=== PATIENT | female | born 2005 | race Two or more races ===

== ENCOUNTER 2024-08-04 22:53 | Emergency (ER) | payer MEDICAID, SELFPAY ==
[2024-08-04 23:26] VITALS: BP 126/74; PULSE 119; RESP 18; TEMP 38.8; O2SAT 98
--- NOTE | 2024-08-04 23:28 | PD.EDRME ---
Rapid Medical Screening Exam RME Arrival date/time: 08/04/24 22:53 18 yo f present to ED for c/o of sore throat for 2 days I have greeted and performed a focused initial assessment of this patient. A comprehensive ED assessment and evaluation of the patient, analysis of all test results, and completion of the medical decision making process will be conducted by additional ED providers. Chief Complaint: Dental/Oral/Throat Time Seen by Provider: 08/04/24 22:57 Vital signs: Vital Signs Temperature 102 F H 08/04/24 23:26 Pulse Rate 119 H 08/04/24 23:26 Respiratory Rate 18 08/04/24 23:26 Blood Pressure 126/74 08/04/24 23:26 Pulse Oximetry (%) 98 08/04/24 23:26 Oxygen Delivery Method Room Air 08/04/24 23:26
[2024-08-04 23:33] VITALS: PULSE 101; RESP 98; TEMP 38.8; BMI 32.1
[2024-08-04] MEDS: ACETAMINOPHEN 500 MG TABLET 1000 MG PO (23:33)
--- NOTE | 2024-08-04 23:35 | EDNOTE_ITS ---
ED Dental RME/HPI General Chief complaint: Dental/Oral/Throat Stated complaint: RE CHECK FOR THROAT SWELLING Time Seen by Provider: 08/04/24 22:57 Arrival date/time: 08/04/24 22:53 Limitations: no limitations RME / HPI RME / HPI Narrative: 08/04/24 22:53 18 yo f present to ED for c/o of sore throat for 2 days I have greeted and performed a focused initial assessment of this patient. A comprehensive ED assessment and evaluation of the patient, analysis of all test results, and completion of the medical decision making process will be conducted by additional ED providers. ----- Dr. Wallis's Main ED Evaluation: 18yo female who was diagnosed with Strep today presents to the ED for a chief complaint of a sore throat x 2 days. Patient endorses associated fever and generalized body aches. Patient states she is able to swallow. She denies any shortness of breath, cough or any other associated symptoms. Related Data Home Medications ?Medication ?Instructions ?Recorded ?Confirmed norgestimate 0.18 mg/0.215 mg/0.25 1 tab PO DAILY 05/1412/09/23 mg-ethinyl estradiol 25 mcg tablet (Tri-Lo-Jess) Previous Rx's ?Medication ?Instructions ?Recorded amoxicillin 500 mg capsule 500 mg PO BID #20 caps 11/11 04/05 Allergies Allergy/AdvReac Type Severity Reaction Status Date / Time ibuprofen Allergy Abdominal Verified 12/09/23 13:53 Pain Review of Systems Review of Systems Systems Reviewed: All systems reviewed, normal except as documented Past Medical History Past Medical History NEUROLOGIC: Negative Neurological Disorders CARDIAC: Negative Cardiac Disorders or Congestive Heart Failure RESPIRATORY: Negative Chronic Obstructive Pulmonary Disease (COPD) or Asthma GASTROINTESTINAL: Positive Irritable Bowel ( A CHILD); Negative Gastrointestinal Disorders GENITOURINARY: Negative Renal Disease MUSCULOSKELETAL: Negative Musculoskeletal Disorders ENDOCRINE: Negative Diabetes Mellitus Type 1 or Diabetes Mellitus Type 2 HEMATOLOGIC: Negative Sickle Cell Disease PSYCHO/SOCIAL: Positive Depression and Anxiety Family History FAMILY HISTORY: Positive Family Cardiac Disorders and Family Cancer Social History SMOKING STATUS: Never smoker ED Exam General Limitations: Present no limitations General appearance: Present alert, in no apparent distress and other (no hot potato voice, appears mildly uncomfortable) Head Head exam: Present atraumatic Eye Eye exam: Present normal appearance, PERRL and EOMI ENT ENT exam: Present mucous membranes moist and other (minimal external swelling to the right jawline, no trismus, bilateral tonsillar swelling with exudate on the right, no pharyngeal wall swelling, not drooling) Neck Neck exam: Present normal inspection, full ROM and trachea midline Chest Chest inspection: Present normal inspection and symmetric chest wall rise Respiratory Respiratory exam: Present normal lung sounds bilaterally Cardiovascular Cardiovascular exam: Present normal rhythm, tachycardia and normal heart sounds Abdominal Exam Abdominal exam: Present soft and normal bowel sounds Extremities Exam Extremities exam: Present normal inspection and full ROM Back Exam Back exam: Present normal inspection and full ROM Neurological Exam Neurological exam: Present alert, oriented X3 and CN II-XII intact Psychiatric Psychiatric exam: Present normal affect and normal mood Skin Skin exam: Present warm, dry, intact and normal color Course Course Course Narrative: 2330: Sepsis alert initiated. Orders made at this time are congruent with ED Adult Sepsis Order List. Re-evaluation is to be completed. 2346: NS IVF started. 0118: Sepsis reassessment performed consisting of lab review, vitals, physical exam including auscultation of heart, lungs, and visual evaluation of capillary refills, mucosal membranes and extremities. Quality Measures Possible source: other Blood cultures ordered: completed in ED Antibiotic ordered: Yes Pertinent labs: 08/04/24 23:34 Lactic Acid 0.9 mMol/L (0.4-2.0) Procalcitonin 0.30 ng/ml (0.0-0.49) sepsis Orders Category Date Time Status Bedside Blood Glucose NOW Care 08/04/24 23:27 Completed Proof Carrier Q4H START 00 Care 08/04/24 23:27 Completed Insert IV NOW Care 08/04/24 23:27 Completed Strict Intake and Output Routine Care 08/04/24 23:27 Ordered Blood Culture (Lab) Stat Lab 08/04/24 23:41 Results CBC Stat Lab 08/04/24 23:34 Completed Comprehensive Metabolic Panel Stat Lab 08/04/24 23:34 Completed HCG,Qualitative Serum Stat Lab 08/04/24 23:34 Completed Lactate (Lactic Acid) Stat Lab 08/04/24 23:34 Completed Partial Thromboplastin Time Stat Lab 08/04/24 23:34 Completed Procalcitonin Stat Lab 08/04/24 23:34 Completed Prothrombin Time with INR Stat Lab 08/04/24 23:34 Completed Acetaminophen Tab [Tylenol ES Tab] Med 08/04/24 23:27 Discontinued 1,000 mg PO X1 ONE Benzonatate [Tessalon] Med 08/05/24 04:22 Discontinued 100 mg PO X1 ONE Clindamycin/Ns 600 mg Ivpb [Cleocin/Ns Ivpb] Med 08/04/24 23:28 Discontinued 600 mg in 50 ml IV X1 HYDROcodone*/APAP 5/325 [[place] 5/325] Med 08/05/24 04:22 Discontinued 1 tab PO X1 ONE Ketorolac Inj [Toradol Inj] Med 08/04/24 23:27 Discontinued 30 mg IVP X1 ONE MethylPREDNISolone.* [SoluMEDROL Inj] Med 08/04/24 23:27 Discontinued 125 mg IVP X1 ONE Sodium Chloride 0.9% 1000 ml [Ns] 1,000 ml Med 08/04/24 23:38 Discontinued IV 999 mls/hr Sodium Chloride 0.9% 1000 ml [Ns] 1,000 ml Med 08/04/24 23:38 Discontinued IV 999 mls/hr Oxygen Delivery NOW RT 08/04/24 23:27 Completed Vital Signs Vital signs: Vital Signs Temperature 102 F H 08/04/24 23:26 Pulse Rate 119 H 08/04/24 23:26 Respiratory Rate 18 08/04/24 23:26 Blood Pressure 126/74 08/04/24 23:26 Pulse Oximetry (%) 98 08/04/24 23:26 Oxygen Delivery Method Room Air 08/04/24 23:26 Pulse ox is 98% on room air, which is normal according to my interpretation. Dental / Oral MDM Narrative MDM Narrative:: Suspect that the patient is tachycardic due to her fever. IVF ordered. 0447: Patient continues to not have trismus or a hot potato voice on re-examination. Patient is tolerating PO fluids. Patient is stable to be discharged on outpatient antibiotics. 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.) Clinical information provided by:: patient Social determinants that could affect healthcare access:: none Patient has the following chronic illnesses:: none How is presenting disease/condition affected by chronic disease/condition?: no chronic disease Evaluation data The following diagnostics were reviewed and interpreted by me:: lab results Lab and/or radiology exams considered but not ordered:: none Interpretation Summary: WBC count is elevated at 19.2, CMP is normal, Lactic Acid is normal, Procalcitonin is normal, HCG is negative, PT and INR are normal, PTT is normal, according to my interpretation. Medications / Prescriptions Medications or Prescriptions considered but not ordered:: none Medication administrations:: Medication Administration History Discontinued Medications Acetaminophen (Acetaminophen 500 Mg Tablet) 1,000 mg PO X1 ONE Stop: 08/04/24 23:28 Last Admin: 08/04/24 23:33 Dose: 1,000 mg Documented By: OA Hydrocodone Bitart/Acetaminophen (Hydrocodone/Apap 5/325 Tablet) 1 tab PO X1 ONE Stop: 08/05/24 04:23 Last Admin: 08/05/24 04:33 Dose: 1 tab Documented By: EF Benzonatate (Benzonatate 100 Mg Capsule) 100 mg PO X1 ONE; Protocol Stop: 08/05/24 04:23 Last Admin: 08/05/24 05:09 Dose: 100 mg Documented By: EF Clindamycin/Sodium Chloride (Cleocin/Ns Ivpb) 600 mg in 50 mls @ 100 mls/hr IV X1 ONE Stop: 08/04/24 23:57 Last Infusion: 08/05/24 00:15 Dose: Infused Documented By: Admin: 08/04/24 23:45 Dose: 100 mls/hr Documented By: EF Sodium Chloride (Ns) 1,000 mls @ 999 mls/hr IV .Q1H1M ONE Stop: 08/05/24 00:38 Last Infusion: 08/05/24 00:53 Dose: Infused Documented By: Admin: 08/04/24 23:46 Dose: 999 mls/hr Documented By: EF Sodium Chloride (Ns) 1,000 mls @ 999 mls/hr IV .Q1H1M ONE Stop: 08/05/24 00:38 Last Infusion: 08/05/24 00:48 Dose: Infused Documented By: Admin: 08/04/24 23:46 Dose: 999 mls/hr Documented By: EF Ketorolac Tromethamine (Ketorolac Inj 30 Mg/Ml Vial) 30 mg IVP X1 ONE Stop: 08/04/24 23:28 Last Admin: 08/04/24 23:44 Dose: 30 mg Documented By: EF Methylprednisolone Sodium Succinate (Methylprednisolone Sod Succ 62.5 Mg/Ml 2ml Vial) 125 mg IVP X1 ONE Stop: 08/04/24 23:28 Last Admin: 08/04/24 23:44 Dose: 125 mg Documented By: EF see above Consultations Consultation(s) initiated? (list below): No Diagnosis Dental Differential Diagnosis: other (strep pharyngitis, sore throat, sepsis, abscess) Most likely diagnosis given after review of the tests above:: see below Admission Indicated Admission indicated?: not indicated Admission Request Was there a request for admission?: No Disposition Plan Disposition Plan: Discharge Discharge Attestation Discharge Attestation: The patient and all family members were given an opportunity to ask questions and understood the discharge instructions. Discharge instructions specifically effects, indications for sooner follow up or return to the emergency department, and the expected course of current diagnosis. Patient condition: Stable Critical Care Time Critical Care Time Critical Care Time: Yes Total Critical Care Time (min.): 35 Attestation: The high probability of sudden, clinically significant deterioration in the patient?s condition required the highest level of my preparedness to intervene urgently. The services I provided to this patient were to treat and/or prevent clinically significant deterioration. Services included the following: chart data review, reviewing nursing notes and/or old charts, documentation time, identity management consultant collaboration regarding findings and treatment options, medication orders and management, direct patient care, vital sign assessments and ordering, interpreting and reviewing diagnostic studies and lab tests. Aggregate critical care time includes only time during which I was engaged in work directly related to the patient?s care, as described above, whether at bedside or elsewhere in the Emergency Department. It did not include time spent performing other reported procedures or the services of residents, students, nurses or physician assistants. Discharge Plan Plan Patient Disposition: HOME (Self Care) Patient condition on transfer: Stable Prescriptions/Referrals Prescriptions/Med Rec: No Action amoxicillin 500 mg capsule 500 mg PO BID Qty: 20 0RF norgestimate-ethinyl estradiol [Tri-Lo-Jess] 0.18/0.215/0.25 mg-25 mcg tablet 1 tab PO DAILY Referrals: Petey Polanco MD [Primary Care Provider] - 08/08/24 4:46 am Problem List Clinical Impression: Pharyngitis Patient/Caregiver Discharge Instructions Diet Instructions: Stay hydrated with Pedialyte and/or Gatorade. Education Materials: ED Pharyngitis, Report Pending Additional Instructions: 1. You will need to take the antibiotics until completion. If you are on control pill you will need to use alternate form of control for the next 30 days since you will be on antibiotics. 2. Please take Tylenol 650 mg 3 times a day and/or Motrin 600 mg 3 times a day with food for the next 48 to 72 hours for pain and/or fever. Please follow-up with your primary care physician on Thursday. 3. Return to the emergency department before your next appointment with your primary care if you are having fever not improved with Tylenol or Motrin, you cannot swallow, worsening pain, or any in the concerns. Print Language: Pashto Stand Alone Forms: Prema Award Info., Patient Portal Info Letter
[2024-08-04] MEDS: KETOROLAC INJ 30 MG/ML VIAL IVP (23:44)
[2024-08-04] MEDS: MethylPREDNISolone SOD SUCC 62.5 MG/ML 2ML VIAL 125 MG IVP (23:44)
[2024-08-04] MEDS: CLINDAMYCIN/NS 600 MG IVPB 600 MG/50 ML BAG 100 MG IV (23:45)
[2024-08-04] MEDS: SODIUM CHLORIDE 0.9% 1000 ML 1,000 ML 999 ML IV ×2 (23:46)
[2024-08-04 23:50] LABS: Lactate (Lactic Acid) 0.9 mMol/L (0.4-2.0)
[2024-08-04 23:55] LABS: Basophils % (Auto) 0 % (0-2.5); Eosinophils % (Auto) 0 % (0-10); Hematocrit 35.2 % (36.0-46.0); Hemoglobin 12.3 g/dL (12.0-16.0); Immature Granulocytes % (Auto) 1 % (0-0); Immature Granulocytes Auto 0.11 Thou/mm3 (0.00-0.00); Lymphocytes % (Auto) 10 % (10-50); Mean Corpuscular HGB Conc 34.9 g/dl (31.0-37.0); Mean Corpuscular Volume 86 fL (80-100); Monocytes # (Auto) 1.2 Thou/mm3 (0.0-0.8); Monocytes % (Auto) 6 % (0-12); Neutrophils # (Auto) 15.9 Thou/mm3 (1.8-7.7); Neutrophils % (Auto) 83 % (37-80); Nucleated Red Blood Cell % 0 /100 WBC (0); Platelet Count 179 Thou/mm3 (140-440); RDW Standard Deviation 39.6 fL (36.4-46.3); White Blood Count 19.2 Thou/mm3 (4.5-11.0)
[2024-08-05 00:27] LABS: HCG,Qualitative Serum Negative
[2024-08-05 00:29] LABS: INR 1.1 (0.9-1.3); Partial Thromboplastin Time 27.1 Seconds (22.0-36.0); Prothrombin Time 11.7 Seconds (9.0-12.2)
[2024-08-05 00:31] LABS: Alanine Aminotransferase 19 U/L (10-49); Albumin, Serum 4.5 gm/dL (3.5-5.0); Albumin/Globulin Ratio 1.4 (1.2-2.2); Alkaline Phosphatase 67 U/L (46-116); Anion Gap 11 (7-16); Aspartate Amino Transferase 27 U/L (0-34); BUN/Creatinine Ratio 13 Ratio (12-20); Bilirubin,Total 0.6 mg/dL (0.3-1.2); Blood Urea Nitrogen 9 mg/dL (9-23); Calcium 9.8 mg/dL (8.3-10.6); Calcium (Corrected) 9.8 mg/dL (8.5-10.1); Carbon Dioxide 22.3 mMol/L (20.0-31.0); Chloride 103 mMol/L (98-107); Creatinine (Component) 0.7 mg/dL (0.6-1.3); Estimated Creatinine Clearance 140.1 mL/min (>60); Globulin 3.3 gm/dL (2.3-3.5); Glucose 121 mg/dL (74-106); Osmolality,Calculated 271 (275-295); Potassium 3.7 mMol/L (3.4-5.1); Sodium 136 mMol/L (136-145); Total Protein 7.8 gm/dL (5.7-8.2); eGFR > 60 See Note
[2024-08-05 00:41] VITALS: TEMP 36.7
[2024-08-05 00:42] VITALS: BP 98/61; PULSE 83; RESP 16; TEMP 36.7; O2SAT 98
[2024-08-05 02:08] VITALS: PULSE 68; RESP 20; RESP 98
[2024-08-05 02:15] VITALS: BP 99/48; PULSE 84; RESP 16; TEMP 36.4; O2SAT 96
[2024-08-05 04:22] VITALS: BP 98/48; PULSE 59; RESP 16; TEMP 36.4; O2SAT 98
[2024-08-05] MEDS: HYDROcodone/APAP 5/325 TABLET 1 TAB PO (04:33)
[2024-08-05] MEDS: BENZONATATE 100 MG CAPSULE PO (05:09)
[2024-08-05 05:15] VITALS: BP 103/58; PULSE 68; RESP 16; O2SAT 98
== END 2024-08-05 05:15 | disposition home or self-care (01) ==
PROVIDERS: Physician Assistant; Emergency Provider Emergency Medicine; PCP Internal Medicine
DX: J02.9 Acute pharyngitis, unspecified (principal)
CPT/HCPCS: 36415; 80053; 83605; 84145; 84703; 85025; 85610; 85730; 87040; 96361; 96365; 96375; 99291; J1885; J2919; J7030; S0077; A9270; J0737